=== PATIENT | female | born 1945 | race Caucasian/White ===

== ENCOUNTER → 2016-10-03 | Day surgery (SDC) | payer MEDICARE, BC ==
[~2016-10-03] MED LIST: ACET325T PO; ADVI200C5 PO; BUPIVACAINE HCL PF 0.5% 30 ML VIAL ONE; CYMB30CA PO; LOPE7.5C PO; PROPOFOL 200 MG/20 ML AMP IV ONE; TRIAMCINOLONE ACETONIDE 40 MG/ML VIAL I-ARTICULR ONE; ZANT150T2 PO
--- NOTE | 2016-10-03 11:10 | M6 ---
cc: ELENA MONROE M.D. DATE: 10/03/2016 1945 PROCEDURE Fluoroscopically guided injection left cervical facet joints (left C2-3, C3-4, C4-5 and C5-6 facet joints). History and physical was completed and signed. Consent was signed. Procedure site was marked. Medications were listed and reconciled. Pain score was recorded. Allergies were noted. Time out was taken. Fluoroscopy time was recorded where applicable. Sedation was administered or directed by Dr. Monroe. The patient was given oxygen. The patient was monitored by a registered nurse. Total procedure time was greater than 15 minutes. IV was started, blood pressure cuff, pulse oximeter and EKG were applied. The patient was placed in the prone position on a Adolph table, sedated with small amounts of propofol titrated to effect. Vital signs were monitored and remained stable throughout the procedure. The cervical area was prepped with alcohol and 10% Betadine solution and draped with sterile drapes. Fluoroscopy was used to visualize the left C2-3, C3-4, C4-5 and C5-6 facet joints. Separate sterile 3-1/2-inch 25-gauge spinal needles were advanced into these joints under fluoroscopic guidance. There was negative aspiration for blood or any other type of fluid and at each location the patient was given 1 mL of 0.5% Marcaine, 10 mg of Kenalog. Following the procedure the patient was taken to the recovery room with stable vital signs, neurologically intact. WMD XIOMY Lr/JEFFREY /9:34 AM /11:05 AM
== END | disposition home or self-care (01) ==
LOC: PHSDC 07:32
PROVIDERS: ATTEND Pain Medicine Interventional Pain Medicine
DX: M54.2 Cervicalgia (principal)
CPT/HCPCS: 64490; 64491; 64492; 99152; J3301